=== PATIENT | male | born 1945 | race Caucasian/White ===

== ENCOUNTER 2016-11-11 13:37 | Emergency (ER) | payer OTHER ==
[~2016-11-11] VITALS: Ht 177.8 cm; Wt 86.4 kg
[2016-11-11] MEDS ORDERED: FINA5TAB2 PO (13:44)
[2016-11-11] MEDS ORDERED: KEFL500C17 PO (14:20)
[2016-11-11] MEDS: cefTRIAXone SOD 1 GM VIAL (J0696) IM ONE ×2 (14:30→15:15)
[2016-11-11 15:39] VITALS: BP 167/83
== END 2016-11-11 15:40 | disposition home or self-care (01) ==
LOC: M ED 13:37
DX: L03.116 Cellulitis of left lower limb (principal); Z87.891 Personal history of nicotine dependence
CPT/HCPCS: 96372; 99282; J0696

== ENCOUNTER 2017-09-15 11:20 | Emergency (ER) | payer OTHER | END 2017-09-15 12:20 | disposition home or self-care (01) | LOC: M ED 11:20 | DX: S90.852A Superficial foreign body, left foot, initial encounter (principal); W45.8XXA Other foreign body or object entering through skin, initial encounter; Y92.89 Other specified places as the place of occurrence of the external cause; Z87.891 Personal history of nicotine dependence; Z98.890 Other specified postprocedural states | CPT/HCPCS: 99282 ==